=== PATIENT | male | born 1955 | race Caucasian/White ===

== ENCOUNTER 2023-06-19 17:04 | Inpatient (IN) | payer OTHER, MEDICAID ==
[~2023-06-19 17:04] MED LIST: Iopamidol 370 76% 100 ML VIAL ONE
[2023-06-19] MEDS ORDERED: Acetaminophen 325 MG TAB PO PRN (21:17)
[2023-06-19] MEDS ORDERED: Metoclopramide HCl 10 MG/2 ML VIAL IVP PRN (21:21)
[2023-06-19] MEDS ORDERED: Ipratropium/Albuterol 3 ML NEB NEB PRN (21:23)
[2023-06-19] MEDS ORDERED: Benzonatate 100 MG CAP PO PRN (21:24)
[2023-06-19] MEDS ORDERED: Electrolyte Replacement Protocol 1 EACH FS PRN (21:30)
[2023-06-19] MEDS ORDERED: Sodium Chloride 0.9% 1,000 ML IV SCH ×2 (21:30→22:00)
[2023-06-19 21:53] VITALS: BMI 44.0
[2023-06-19] MEDS ORDERED: Communication Order-Pharmacy FS ONE (21:58)
[2023-06-19] MEDS: methylPREDNISolone Sod Succ 40 MG VIAL IVP SCH (23:26)
[2023-06-20] LABS: Troponin I 0.164 ng/mL (< 0.028)
[2023-06-20 04:23] LABS: #Monocytes 0.1 thou/uL (0.11-0.59); #Neutrophils 5.4 thou/uL (1.40-6.50); %Basophils 0.2 % (0.0-1.0); %Lymphocytes 5.3 % (21.0-51.0); %Monocytes 1.4 % (0.0-10.0); %Neutrophils 92.6 % (42.0-75.0); Hematocrit 40.6 % (42.0-52.0); Hemoglobin 13.6 g/dL (14.0-18.0); Mean Corpuscular HGB CONC 33.5 g/dL (32.0-36.0); Mean Corpuscular Hemoglobin 31.7 pg (27.0-31.0); Mean Corpuscular Volume 94.6 fl (78.0-98.0); Mean Platelet Volume 10.1 fL (7.4-10.4); Platelet Count 151 10x3/uL (130-400); RBC Distribution Width 14.6 % (11.5-14.5); Red Blood Cell (RBC) Count 4.29 mill/uL (4.70-6.10); White Blood Cell (WBC) Count 5.8 10x3/uL (4.8-10.8)
[2023-06-20] MEDS: Levothyroxine Sodium 50 MCG TAB PO SCH (05:22)
[2023-06-20] MEDS: methylPREDNISolone Sod Succ 40 MG VIAL IVP SCH (05:22)
[2023-06-20] MEDS: Oseltamivir 75 MG CAP PO SCH ×2 (08:40→22:16)
[2023-06-20 09:00] LABS: Albumin 3.8 g/dL (3.4-4.8); Chloride 103 mmol/L (98-107); Potassium 3.6 mmol/L (3.5-5.1); Sodium 135 mmol/L (136-145)
[2023-06-20] MEDS ORDERED: Famotidine/PF 20 mg/2ml Vial SLOW IVP SCH (09:00)
[2023-06-20 09:01] LABS: ALT (SGPT) 29 U/L (8-55); AST (SGOT) 39 U/L (5-34); Alkaline Phosphatase 37 U/L (40-110); Anion Gap 16 mmol/L (10-20); BUN (Urea Nitrogen) 30 mg/dL (8.4-25.7); Bilirubin, Total 0.3 mg/dL (0.2-1.2); Calc. Creatinine Clearance 91 mL/min (70-130); Calcium 7.9 mg/dL (7.8-10.44); Carbon Dioxide 20 mmol/L (23-31); Estimated GFR 49; Globulin 2.7 g/dL (2.4-3.5); Glucose 236 mg/dL (80-115); Protein, Total 6.5 g/dL (5.8-8.1)
[2023-06-20 09:30] LABS: Troponin I 0.213 ng/mL (< 0.028)
[2023-06-20 10:29] LABS: Anion Gap 13 mmol/L (10-20); BUN (Urea Nitrogen) 30 mg/dL (8.4-25.7); Calc. Creatinine Clearance 108 mL/min (70-130); Calcium 8.4 mg/dL (7.8-10.44); Carbon Dioxide 25 mmol/L (23-31); Chloride 104 mmol/L (98-107); Estimated GFR 60; Glucose 158 mg/dL (80-115); Potassium 3.9 mmol/L (3.5-5.1); Sodium 138 mmol/L (136-145)
[2023-06-20 10:37] LABS: Troponin I 0.232 ng/mL (< 0.028)
[2023-06-20] MEDS ORDERED: Communication Order-Pharmacy FS SCH (10:45)
[2023-06-20] MEDS ORDERED: Verapamil 5 MG/2 ML VIAL ONE (10:53)
[2023-06-20] MEDS ORDERED: Lidocaine 1% PF 5 ML VIAL ONE (10:53)
[2023-06-20] MEDS ORDERED: Heparin 10,000 UNITS/ 10 ML VIAL ONE (10:53)
[2023-06-20] MEDS ORDERED: Nitroglycerin 50 MG/250 ML BOT 250 ML ONE (10:54)
[2023-06-20] MEDS: Sodium Chloride 0.9% 1,000 ML IV SCH ×2 (11:47→22:16)
[2023-06-20] MEDS ORDERED: Nitroglycerin 0.4 MG TAB (25 Tab Bottle) SL PRN (14:41)
[2023-06-20] MEDS ORDERED: diphenhydrAMINE 25 MG CAP PO PRN (14:53)
[2023-06-20] MEDS: predniSONE 20 MG TAB PO SCH ×2 (16:38→22:15)
[2023-06-20] MEDS ORDERED: Atorvastatin Calcium 10 MG TAB PO SCH (21:00)
[2023-06-20] MEDS ORDERED: Montelukast Sodium 10 mg Tablet PO SCH (21:00)
[2023-06-20] MEDS ORDERED: Atorvastatin Calcium 40 MG TAB PO SCH (21:00)
[2023-06-20] MEDS: Famotidine/PF 20 mg/2ml Vial SLOW IVP SCH (22:15)
[2023-06-20] MEDS: Metoprolol Tartrate 25 MG TAB PO SCH (22:16)
[2023-06-21 04:33] LABS: #Monocytes 0.5 thou/uL (0.11-0.59); #Neutrophils 10.1 thou/uL (1.40-6.50); %Basophils 0.1 % (0.0-1.0); %Lymphocytes 6.5 % (21.0-51.0); %Monocytes 4.6 % (0.0-10.0); %Neutrophils 87.9 % (42.0-75.0); Hematocrit 41.6 % (42.0-52.0); Hemoglobin 13.7 g/dL (14.0-18.0); Mean Corpuscular HGB CONC 32.9 g/dL (32.0-36.0); Mean Corpuscular Hemoglobin 31.7 pg (27.0-31.0); Mean Corpuscular Volume 96.3 fl (78.0-98.0); Mean Platelet Volume 10.5 fL (7.4-10.4); Platelet Count 151 10x3/uL (130-400); RBC Distribution Width 14.5 % (11.5-14.5); Red Blood Cell (RBC) Count 4.32 mill/uL (4.70-6.10); White Blood Cell (WBC) Count 11.4 10x3/uL (4.8-10.8)
[2023-06-21] MEDS: predniSONE 20 MG TAB PO SCH (04:45)
[2023-06-21] MEDS: Levothyroxine Sodium 50 MCG TAB PO SCH (04:45)
[2023-06-21 05:00] LABS: Anion Gap 12 mmol/L (10-20); BUN (Urea Nitrogen) 39 mg/dL (8.4-25.7); Calc. Creatinine Clearance 97 mL/min (70-130); Calcium 8.5 mg/dL (7.8-10.44); Carbon Dioxide 26 mmol/L (23-31); Chloride 106 mmol/L (98-107); Estimated GFR 53; Glucose 145 mg/dL (80-115); Potassium 4.5 mmol/L (3.5-5.1); Sodium 139 mmol/L (136-145)
[2023-06-21] MEDS ORDERED: fentaNYL 50 mcg/mL 1 mL Vial ONE (06:08)
[2023-06-21] MEDS ORDERED: Adenosine 6 MG/2 ML VIAL ONE (06:08)
[2023-06-21] MEDS ORDERED: Lidocaine 1% (PF) 30 ML VIAL ONE (06:08)
[2023-06-21] MEDS ORDERED: Verapamil 5 MG/2 ML VIAL ONE (06:08)
[2023-06-21] MEDS ORDERED: Midazolam HCl 2 mg/2 ml Vial ONE (06:08)
[2023-06-21] MEDS ORDERED: Heparin 10,000 UNITS/ 10 ML VIAL ONE (06:08)
[2023-06-21] MEDS ORDERED: Nitroglycerin 50 MG/250 ML BOT 250 ML ONE (06:09)
[2023-06-21] MEDS ORDERED: Ondansetron PF 4 MG/2 ML Vial ONE (06:15)
[2023-06-21] MEDS ORDERED: diphenhydrAMINE 50 MG/ML VIAL ONE (07:11)
[2023-06-21] MEDS ORDERED: Hydrocortisone Sod Succ/PF 100 mg/2 ml Vial ONE (07:11)
[2023-06-21] MEDS ORDERED: hydrALAZINE 20 MG/ML VIAL ONE (07:22)
[2023-06-21] MEDS ORDERED: Nitroglycerin 0.4 MG TAB (25 Tab Bottle) SL PRN (07:45)
[2023-06-21] MEDS ORDERED: Sodium Chloride 0.9% 200 ML IV PRN (07:45)
[2023-06-21] MEDS ORDERED: Sodium Chloride 0.9% 1,000 ML IV SCH (07:45)
[2023-06-21] MEDS ORDERED: Acetaminophen/Codeine 30-300mg Tablet PO PRN ×2 (07:45)
[2023-06-21] MEDS: Oseltamivir 75 MG CAP PO SCH (08:53)
[2023-06-21] MEDS: Famotidine/PF 20 mg/2ml Vial SLOW IVP SCH (08:53)
[2023-06-21] MEDS: Metoprolol Tartrate 25 MG TAB PO SCH (08:54)
[2023-06-21] MEDS ORDERED: Aspirin 81 mg Enteric Coated Tablet PO SCH (09:00)
[2023-06-21] MEDS: Sodium Chloride 0.9% 1,000 ML IV SCH (09:51)
[2023-06-21 11:54] VITALS: BP 128/70; TEMP 97.9
== END 2023-06-21 16:00 | disposition home or self-care (01) | DRG 193 ==
LOC: 2NO 19:32 → OBSVTOIN 21:55
PROVIDERS: ADMIT Internal Medicine; ATTEND Internal Medicine
PROC: 4A023N7 Measurement of Cardiac Sampling and Pressure, Left Heart, Percutaneous Approach (ICD-10-PCS; principal; 2023-06-21)
PROC: B2111ZZ Fluoroscopy of Multiple Coronary Arteries using Low Osmolar Contrast (ICD-10-PCS; 2023-06-21)
PROC: B2151ZZ Fluoroscopy of Left Heart using Low Osmolar Contrast (ICD-10-PCS; 2023-06-21)
DX: J11.00 Influenza due to unidentified influenza virus with unspecified type of pneumonia (principal); I21.A1 Myocardial infarction type 2; J96.01 Acute respiratory failure with hypoxia; Z68.41 Body mass index [BMI] 40.0-44.9, adult; I13.0 Hypertensive heart and chronic kidney disease with heart failure and stage 1 through stage 4 chronic kidney disease, or unspecified chronic kidney disease; I50.9 Heart failure, unspecified; I25.10 Atherosclerotic heart disease of native coronary artery without angina pectoris; E78.5 Hyperlipidemia, unspecified; N18.9 Chronic kidney disease, unspecified; E66.9 Obesity, unspecified; K21.9 Gastro-esophageal reflux disease without esophagitis; F17.210 Nicotine dependence, cigarettes, uncomplicated; I25.2 Old myocardial infarction; Z88.0 Allergy status to penicillin; Z79.899 Other long term (current) drug therapy; Z95.5 Presence of coronary angioplasty implant and graft
CPT/HCPCS: 36415; 36416; 71275; 80048; 80053; 84484; 85025; 93005; 93010; 93458; C1760; C1769; C1894; J0153; J0360; J1200; J1644; J1650; J1720; J2001; J2250; J2405; J2920; J3010; J7050; J7512; Q9967; S0028